=== PATIENT | female | born 1955 | race Caucasian/White ===

== ENCOUNTER → 2024-01-22 12:09 | Outpatient (REF) | payer MEDICARE, SELFPAY | LOC: WDC 12:09 | PROVIDERS: ATTENDING PHYSICIAN Obstetrics & Gynecology; FAMILY PHYSICIAN Internal Medicine | DX: Z12.31 Encounter for screening mammogram for malignant neoplasm of breast (principal) | CPT/HCPCS: 77063; 77067 ==

== ENCOUNTER → 2024-01-28 14:03 | Outpatient (REF) | payer MEDICARE, SELFPAY | LOC: RAD 14:03 | PROVIDERS: ATTENDING PHYSICIAN Obstetrics & Gynecology; FAMILY PHYSICIAN Internal Medicine | DX: N95.1 Menopausal and female climacteric states (principal); Z78.0 Asymptomatic menopausal state | CPT/HCPCS: 77080 ==

== ENCOUNTER → 2024-07-28 12:47 | Outpatient (REF) | payer MEDICARE, SELFPAY | LOC: RAD 12:47 | PROVIDERS: ATTENDING PHYSICIAN Obstetrics & Gynecology; FAMILY PHYSICIAN Internal Medicine | DX: R10.2 Pelvic and perineal pain (principal); N81.2 Incomplete uterovaginal prolapse | CPT/HCPCS: 76830; 76856 ==

== ENCOUNTER → 2024-08-27 08:57 | Outpatient (REF) | payer MEDICARE, SELFPAY ==
[2024-08-27 11:17] LABS: Hematocrit 46.1 % (37.0-47.0); Hemoglobin 15.0 g/dL (12.0-16.0); Mean Corp Hgb Conc. 32.5 g/dL (33.0-37.0); Mean Corpuscular Volume 94.3 fL (81.0-99.0); Platelet Count 151 10^3/uL (130-400); Red Cell Dist. Width 12.1 % (11.5-14.5)
[2024-08-27 11:37] LABS: Blood Urea Nitrogen 14 mg/dl (7-17); Calcium 9.2 mg/dl (8.4-10.2); Carbon Dioxide 26 mmol/L (22-30); Chloride 105 mmol/L (98-107); Glucose 102 mg/dl (70-99); Potassium 5.0 mmol/L (3.5-5.1); Sodium 139 mmol/L (135-145); eGFR > 60.00
== END ==
LOC: SDSPAT 08:57
PROVIDERS: ATTENDING PHYSICIAN Obstetrics & Gynecology; FAMILY PHYSICIAN Internal Medicine; OTHER PHYSICIAN Obstetrics & Gynecology
DX: Z01.818 Encounter for other preprocedural examination (principal)
CPT/HCPCS: 36415; 80048; 85027; 86850; 86900; 86901; 93005

== ENCOUNTER 2024-09-07 06:22 | Day surgery (SDC) | payer MEDICARE, SELFPAY ==
[2024-08-27 13:56] VITALS: BMI 29.1
[2024-09-07] VITALS (16 sets, daily range): BP systolic 95–150; BP diastolic 47–78; BMI 29.1
[2024-09-07 09:20] LABS: Glucose - Point of Care 89 mg/dl (70-99)
[2024-09-07] MEDS: TYLENOL 1000 MG PO (09:27)
[2024-09-07] MEDS: NEURONTIN 300 MG PO (09:27)
[2024-09-07] MEDS: NORMOSOL-R/PLASMALYTE-A 1000 IV (09:28)
[2024-09-07] MEDS: BENADRYL 12.5 MG IV (09:39)
[2024-09-07] MEDS: VANCOCIN 200 IV (09:39)
[2024-09-07] MEDS: HEPARIN 5000 UNITS SC (09:40)
--- NOTE | 2024-09-07 12:00 | W.IMMPOSTOP ---
Surgical Immed Post Op Note
-
Primary Surgeon: Amy Mahan DO
Chief Communications Officer: EDNA Raman
Pre-op Diagnosis: Pelvic organ prolapse, Stage3
Post-op Diagnosis: same
Procedure Performed: Robotic total laparoscopic hysterectomy bilateral salpingo-oopherectomy ( [place]);
(Dr Gutierrez will be performing sacrocolpopexy and posterior colporrhaphy with perineoplasty, cystoscopy)
Anesthesia Type: general ET Dr. Haynes
Specimen / Cultures: uterus, cervix, bilateral fallopian tubes and bilateral ovaries
Estimated Blood Loss: 5mL
Complications: none
Operative Findings: Uterus normal size, normal appearance, normal appearing fallopian tubes and bilateral atrophic ovaries.
Pelvic organ prolapse, stage 3. There are adhesions noted right upper quadrant and in epigastric region in midline from prior surgery.
Complications: none
Care of the patient handed over to Dr. Gutierrez after completion of hysterectomy. The patient remained stable through procedure
through hand-off.
[2024-09-07] MEDS: ZOFRAN 4 MG IV (14:31)
[2024-09-07] MEDS: TORADOL 15 MG IV (15:18)
[2024-09-07] MEDS: GENTAMICIN 59.325 MG IV (15:29)
[2024-09-07] MEDS: COMPAZINE 5 MG IV (17:16)
== END 2024-09-07 18:45 | disposition home or self-care (01) ==
LOC: SDS 06:22
PROVIDERS: ATTENDING PHYSICIAN Obstetrics & Gynecology; FAMILY PHYSICIAN Internal Medicine
DX: N81.3 Complete uterovaginal prolapse (principal); N39.3 Stress incontinence (female) (male); N36.41 Hypermobility of urethra; R39.11 Hesitancy of micturition; N83.8 Other noninflammatory disorders of ovary, fallopian tube and broad ligament
CPT/HCPCS: 57425; 58571; 57250; 57288; 82962; 86900; 86901; 88305; C1713; C1763; C1771

== ENCOUNTER → 2024-10-05 12:57 | Outpatient (REF) | payer MEDICARE, SELFPAY | LOC: RAD 12:57 | PROVIDERS: ATTENDING PHYSICIAN Physician Assistant; FAMILY PHYSICIAN Internal Medicine; REFERRING PHYSICIAN Surgery | DX: R10.9 Unspecified abdominal pain (principal) | CPT/HCPCS: 76770 ==

== ENCOUNTER → 2025-01-18 11:50 | Outpatient (REF) | payer MEDICARE, SELFPAY | LOC: WDC 11:50 | PROVIDERS: ATTENDING PHYSICIAN Obstetrics & Gynecology; FAMILY PHYSICIAN Internal Medicine | DX: Z12.31 Encounter for screening mammogram for malignant neoplasm of breast (principal) | CPT/HCPCS: 77063; 77067 ==